=== PATIENT | male | born 1975 | race African-American/Black ===

== ENCOUNTER 2023-01-28 11:58 | Emergency (ER) | payer OTHER ==
[~2023-01-28] VITALS: Ht 172.7 cm; Wt 95.0 kg
[2023-01-28] MEDS ORDERED: KETOROLAC TROMETH 30 MG/ML 1ML VIAL IM ONE (15:15)
[2023-01-28 16:17] VITALS: BP 147/87
== END 2023-01-28 16:23 | disposition home or self-care (01) ==
LOC: ER 11:58
DX: S89.82XA Other specified injuries of left lower leg, initial encounter (principal); W18.09XA Striking against other object with subsequent fall, initial encounter; Y93.89 Activity, other specified; Y92.89 Other specified places as the place of occurrence of the external cause; Y99.8 Other external cause status
CPT/HCPCS: 29505; 73700; 96372; 99285; J1885

== ENCOUNTER 2024-07-07 23:14 | Emergency (ER) | payer OTHER ==
[~2024-07-07] VITALS: Ht 172.7 cm; Wt 95.6 kg
[2024-07-07] MEDS: TETANUS-DIPTH-ACEL PERTUSSIS 0.5ML SYR Tdap IM ONE (23:53)
[2024-07-07] MEDS: KETOROLAC TROMETH 60MG/2ML VIAL IM ONE (23:53)
[2024-07-08 00:40] VITALS: BP 118/73; PULSE 70; RESP 18; TEMP 97.5; O2SAT 93
--- NOTE | 2024-07-08 00:44 | DVH ---
CLINICAL INDICATION: Right index finger TECHNIQUE: XY R HAND 3 VIEW XRAY Comparison: None FINDINGS/IMPRESSION: There is no evidence of gross fracture or dislocation. Small osseous fragment adjacent to the 2nd dig it PIP joint which may represent an avulsion fracture versus normal variant ossicle versus ossificati on of the adjacent tendinous/ligamentous structures. The visualized joint space is well maintained. The alignment is anatomical. There is no radiopaque foreign body.
[2024-07-08] MEDS ORDERED: HYDR-4902 PO (00:59)
[2024-07-08] MEDS ORDERED: IBUP-1455 PO (00:59)
[2024-07-08] MEDS ORDERED: CEPH500C PO (00:59)
--- NOTE | 2024-07-08 01:01 | ED.PDOC ---
Musculoskeletal HPI Comments This patient is a 48-year-old male who arrives to the ED today for evaluation of right index finger swelling and pain concerns. Patient states the symptoms began approximately three days ago and have just continued to worsened. Patient denies any trauma or any foreign body exposure. The wound does not involve only the cuticle region in his not indicative of a paronychia. Skin around the finger is taut. Patient denies any fever nausea or vomiting. Patient was hypertensive and tachycardic at arrival. Chief Complaint: Upper Extremity Time Seen by MD: 23:22 Reviewed Notes: Nurses Notes Allergies: Coded Allergies: NO KNOWN ALLERGIES (Unverified , 01/28/23) Information Source: Patient, Friend Mode of Arrival: Ambulatory Location: Right Extremity Location: Finger 2 Timing: Days Prehospital treatment: None Severity: Moderate Able to Move Extremity: Yes Bear Weight: Fully Pain: Moderate Hand Dominance: Right Mechanism: Unknown Circumstances: Spontaneous Onset of Symptoms: Spontaneous Symptoms: Swelling, Pain DVT Risk Factors: NONE Past Medical History PAST MEDICAL HISTORY: Denies Surgical History: Denies all surgeries Family History Family History: Reviewed,noncontributory to illness Social History Smoker: Non-Smoker Alcohol: Denies ETOH Use Drugs: Denies Drug Use Lives In: Home Constitutional: denies: chills, diaphoresis, fatigue, fever, malaise, sweats, weakness, others EENTM: denies: blurred vision, double vision, ear bleeding, ear discharge, ear drainage, ear pain, ear ringing, eye pain, eye redness, hearing loss, mouth pain, mouth swelling, nasal discharge, nose bleeding, nose congestion, nose pain, photophobia, tearing, throat pain, throat swelling, voice changes, others Respiratory: denies: cough, hemoptysis, orthopnea, SOB at rest, shortness of breath, SOB with excertion, stridor, wheezing, others Cardiovascular: denies: chest pain, dizzy spells, diaphoresis, Dyspnea on exertion, edema, irregular heart beat, left arm pain, lightheadedness, palpitations, PND, syncope, others Gastrointestinal: denies: abdomen distended, abdominal pain, blood streaked bowels, constipated, diarrhea, dysphagia, difficulty swallowing, hematemesis, melena, nausea, poor appetite, poor fluid intake, rectal bleeding, rectal pain, vomiting, others Genitourinary: denies: burning, dysuria, flank pain, frequency, hematuria, incontinence, penile discharge, penile sore, pain, testicle pain, testicle swelling, urgency, others Neurological: denies: dizziness, fainting, headache, left sided numbness, left sided weakness, numbness, paresthesia, pre-existing deficit, right sided numbness, right sided weakness, seizure, speech problems, tingling, tremors, weakness, others Musculoskeletal: reports: others (Right index finger swelling and pain); denies: back pain, gout, joint pain, joint swelling, muscle pain, muscle stif fness, neck pain Integumetry: denies: bruises, change in color, change in hair/nails, dryness, laceration, lesions, lumps, rash, wounds, others Allergic/Immunocompromised: denies: Difficulty Healing, Frequent Infections, Hives, Itching, others Hematologic/Lymphatic: denies: anemia, blood clots, easy bleeding, easy br uising, swollen glands, others Endocrine: denies: excessive hunger, excessive sweating, excessive thirst, excessive urination, flushing, intolerance to cold, intolerance to heat, unexplained weight gain, unexplained weight loss, others Psychiatric: denies: anxiety, bipolar disorder, depression, hopeless, panic disorder, schizophrenia, sleepless, suicidal, others Physical Exam General Appearance: Moderate Distress (Due to right index finger pain and swelling concerns), Normal HEENT: Normal ENT Inspection, Pharynx Normal, TMs Normal Neck: Full Range of Motion, Non-Tender, Normal, Normal Inspection Respiratory: Chest Non-Tender, Lungs Clear, No Accessory Muscle Use, No Respiratory Distress, Normal Breath Sounds Cardiovascular: No Edema, No JVD, No Murmur, No Gallop, Normal Peripheral Pulses, Regular Rate/Rhythm Breast Exam: Deferred Gastrointestinal: No Organomegaly, Non Tender, No Pulsatile Mass, Normal Bowel Sounds, Soft Genitalia: Deferred Pelvic: Deferred Rectal: Deferred Extremities: Other (Right index finger reveals edema that extends from the distal phalanx through the medial phalanx and reducing at the proximal phalanx. No definitive penetrating wounds signs available. Skin is taut. No definitive erythema. No crepitus appreciated.) Neurologic: Alert, safety associate II-XII nml as Tested, No Motor Deficits, Normal Affect, Normal Mood, No Sensory Deficits Cerebellar Function: Normal Reflexes: Normal Skin: Dry, Normal Color, Warm Lymphatic: No Adenopathy Was a procedure done? Was a procedure done?: No Differential Diagnosis EXT Differential Diagnosis: Other (Retained foreign body, paronychia, skin infection) X-Ray, Labs, Meds, VS Vital Signs Date Time Temp Pulse Resp B/P (MAP) Pulse Ox O2 Delivery O2 Flow Rate FiO2 07/08/24 00:40 97.5 70 18 118/73 (88) 93 97.5 07/08/24 00:00 106 16 97 Room Air 07/07/24 23:30 97.5 106 16 166/115 (132) 97 Current Medications Medications (Trade) Dose Ordered Sig/Isabella Route Start Time Stop Time Status Last Admin Ketorolac Tromethamine (Toradol Injection) 30 mg ONCE ONCE IM 07/07/24 23:45 07/07/24 23:47 DC 07/07/24 23:53 Diphtheria/ Tetanus/Acell Pertussis (Boostrix T-Dap) 0.5 ml ONCE ONCE IM 07/07/24 23:45 07/07/24 23:47 DC 07/07/24 23:53 X-Ray, Labs, Meds, VS Comment All studies performed the ED were reviewed by me personally. Imaging studies of the right hand were unremarkable for any retained foreign body or fracture component. Patient has some level of infection of the finger. Patient will be sent home with antibiotics and pain medication advised to return to ED in the next 3-5 days for re-evaluation as needed. Time of 1ST Reevaluation: 00:58 Reevaluation 1ST: Improved Consultation: PCP Patient Education/Counseling: Diagnosis, Treatment Family Education/Counseling: Diagnosis, Treatment Departure 1 Departure Time of Disposition: 00:58 Impression: Primary Impression: Finger infection Disposition: 01 HOME / SELF CARE / HOMELESS Condition: Stable Additional Instructions: Advised patient utilize antibiotics as directed until completion as well as pain medication as needed. Patient should return to ED or primary care provider in 3-5 days for re-evaluation as needed. e-Prescriptions Hydrocodone-Acetaminophen (Hydrocodone Bitartrate/AC 5-325 mg) 1 Tab Tab 1 TAB PO Q6HP PRN, #10 TAB Prov: YARON COLES PAC 07/08/24 Ibuprofen Micronized (Ibuprofen) 800 Mg Tab 800 MG PO Q8HP PRN, #20 TAB Prov: YARON COLES PAC 07/08/24 Cephalexin Monohydrate (Cephalexin) 500 Mg Cap 1 CAP PO QID for 7 Days, #28 CAP Prov: YARON COLES PAC 07/08/24 Discharged With: Self, Friend Critical Care Note Critical Care Time?: No Stability Stability form required: No Heart Score Heart Score: Heart Score Response (Comments) Value History N/A 0 EKG N/A 0 Age N/A 0 Risk Factors N/A 0 Troponin N/A 0 Total 0 YARON COLES PAC Jul 08, 2024 01:00
== END 2024-07-08 01:09 | disposition home or self-care (01) ==
LOC: ER 23:14
DX: L08.9 Local infection of the skin and subcutaneous tissue, unspecified (principal)
CPT/HCPCS: 73130; 90471; 90715; 96372; 99284; J1885